=== PATIENT | male | born 1990 | race Caucasian/White ===

== ENCOUNTER 2017-02-22 20:54 | Emergency (ER) | payer OTHER ==
[2017-02-22] MEDS: KETOROLAC 60 MG INJ IM (21:36)
[2017-02-22] MEDS: ONDANSETRON (ODT) 4 MG TAB ODT (21:37)
== END 2017-02-23 01:21 | disposition home or self-care (01) ==
LOC: FTE 02-23 01:21
DX: J02.9 Acute pharyngitis, unspecified (principal)
CPT/HCPCS: 96372; 99284-25

== ENCOUNTER 2017-02-28 09:58 | Emergency (ER) | payer OTHER ==
[2017-02-28] MEDS: predniSONE 20 MG TAB PO (12:26)
== END 2017-02-28 12:35 | disposition home or self-care (01) ==
LOC: FTE 09:58
DX: R22.1 Localized swelling, mass and lump, neck (principal)
CPT/HCPCS: 99283; J7512

== ENCOUNTER 2017-03-31 17:49 | Emergency (ER) | payer OTHER | END 2017-03-31 18:58 | disposition home or self-care (01) | LOC: FTE 17:49 → E/R 18:58 | DX: H60.502 Unspecified acute noninfective otitis externa, left ear (principal) | CPT/HCPCS: 99283; Z7502 ==

== ENCOUNTER 2017-06-30 18:35 | Emergency (ER) | payer OTHER ==
[2017-06-30] MEDS: SODIUM CHLORIDE 0.9% 1L BAG IV* (19:59)
[2017-06-30] MEDS: ACETAMINOPHEN 325 MG TAB PO (20:00)
[2017-06-30 20:17] LABS: ADD MAN DIFF? NO
[2017-06-30 20:35] LABS: WHITE BLOOD COUNT 10.4 10^3/ul (4.8-10.8)
[2017-06-30 20:35] LABS: BASOPHILS % 0.4 % (0.0-2.0); EOSINOPHILS % 0.3 % (0.0-7.0); HEMATOCRIT 44.4 % (42.0-52.0); HEMOGLOBIN 15.1 g/dl (14.0-18.0); LYMPHOCYTES # 0.8 10^3/ul (0.8-2.9); MEAN CORPUSCULAR HEMOGLOBIN 27.7 pg (29.0-33.0); MEAN CORPUSCULAR VOLUME 81.5 fl (82.0-101.0); MEAN PLATELET VOLUME 10.1 fl (7.4-10.4); MONOCYTE # 1.3 10^3/ul (0.3-0.9); MONOCYTES % 12.5 % (0.0-11.0); NEUTROPHIL # 8.2 10^3/ul (1.6-7.5); NEUTROPHILS % 78.4 % (39.0-77.0); PLATELET COUNT 285 10^3/UL (140-415); RED BLOOD COUNT 5.45 10^6/ul (4.70-6.10); RED CELL DISTRIBUTION WIDTH 13.1 % (11.5-14.5)
[2017-06-30 20:39] LABS: INR 0.93; PARTIAL THROMBOPLASTIN TIME 29.1 Sec (25.0-35.0); PROTIME 12.5 Sec (11.9-14.9)
[2017-06-30 20:40] LABS: ALANINE AMINOTRANSFERASE 37 IU/L (13-69); ALBUMIN 4.6 g/dl (3.3-4.9); ALBUMIN/GLOBULIN RATIO 1.21; ALKALINE PHOSPHATASE 80 IU/L (42-121); ANION GAP 17 (8-16); ASPARTATE AMINO TRANSFERASE 25 IU/L (15-46); BILIRUBIN,INDIRECT 0.4 mg/dl (0-1.1); BILIRUBIN,TOTAL 0.4 mg/dl (0.2-1.3); BLOOD UREA NITROGEN 9 mg/dl (7-20); CALCIUM 9.1 mg/dl (8.4-10.2); CARBON DIOXIDE 28 mmol/L (21-31); CHLORIDE 100 mmol/L (97-110); CREATININE 0.75 mg/dl (0.61-1.24); GLUCOSE 88 mg/dl (70-220); POTASSIUM 3.9 mmol/L (3.5-5.1); SODIUM 141 mmol/L (135-144); TOTAL PROTEIN 8.4 g/dl (6.1-8.1)
[2017-06-30 20:41] LABS: LACTIC ACID 1.5 mmol/L (0.5-2.0)
[2017-06-30 20:53] LABS: TROPONIN-I < 0.012 ng/ml (0.00-0.12)
[2017-06-30 22:25] LABS: ADD UMIC NO; UR ASCORBIC ACID NEGATIVE (NEGATIVE); UR BILIRUBIN (Dip) NEGATIVE (NEGATIVE); UR BLOOD (Dip) NEGATIVE (NEGATIVE); UR CLARITY CLEAR (CLEAR); UR COLOR STRAW (YELLOW); UR GLUCOSE (Dip) NEGATIVE (NEGATIVE); UR KETONES (Dip) NEGATIVE (NEGATIVE); UR LEUKOCYTE ESTERASE (Dip) NEGATIVE Leu/ul (NEGATIVE); UR NITRITE (Dip) NEGATIVE (NEGATIVE); UR SPECIFIC GRAVITY (Dip) 1.009 (1.003-1.030); UR TOTAL PROTEIN (Dip) NEGATIVE (NEGATIVE); UR UROBILINOGEN (Dip) NEGATIVE (NEGATIVE)
== END 2017-06-30 22:39 | disposition home or self-care (01) ==
LOC: FTE 18:35
DX: R50.9 Fever, unspecified (principal); R07.9 Chest pain, unspecified
CPT/HCPCS: 36415; 71045; 80053; 81003; 83605; 84484; 85025; 85610; 85730; 87040; 87086; 87400; 93005; 99285-25